=== PATIENT | female | born 1955 | race Caucasian/White ===

== ENCOUNTER 2020-10-16 09:08 | Day surgery (SDC) | payer BC, MEDICARE ==
[2020-10-16] MEDS ORDERED: Propofol 200 MG/20 ML SDV IV ONE (09:09)
[2020-10-16] MEDS ORDERED: Sodium Chloride 0.9% 10 ML Syringe FLUSH PRN (09:45)
[2020-10-16] MEDS ORDERED: Lactated Ringers 1,000 ML IV SCH (09:45)
--- NOTE | 2020-10-16 11:04 | PCM.OPNOTE ---
- General Post-Op/Procedure Note Date of Surgery/Procedure: 10/16/20 Operative Procedure(s): c scope Findings: sigmoid diverticulosis sp right liana colectomy Pre Op Diagnosis: personal hx of colon polyps. hx of diverticulosis Post-Op Diagnosis: sigmoid diverticulosis Anesthesia Technique: MAC Primary Surgeon: Joey Avila Anesthesia Provider: Jamie Milton Pathology: none Complications: None Condition: Good Free Text/Narrative:: see dictation [id number]
[2020-10-16 12:35] VITALS: BP 120/74; PULSE 56
--- NOTE | 2020-10-17 10:16 | OR ---
DATE OF OPERATION: 10/16/2020 SURGEON: Joey Avila MD PROCEDURE PERFORMED: Colonoscopy. PREOPERATIVE DIAGNOSIS: Personal history of colon polyps. POSTOPERATIVE DIAGNOSIS: Sigmoid diverticulosis. INDICATIONS FOR PROCEDURE: This is a 65-year-old white female who has had a right hemicolectomy in the past for adenomatous polyp. Her last scope 5 years ago demonstrated a small adenoma in the descending colon. She presents now for followup colonoscopy. She has a known finding of sigmoid diverticulosis as well. DESCRIPTION OF OPERATION: After an excellent IV sedation was administered, digital rectal exam was performed. No marked abnormality was noted. Flexible colonoscope was inserted and advanced to the ileocolic anastomosis. The following findings were noted. As the scope was slowly withdrawn, a photo was taken of the ileocolic anastomosis, which was unremarkable. Transverse colon, unremarkable. Descending colon, unremarkable. Sigmoid, occasional diverticula. Rectum and anus, unremarkable. The patient tolerated the procedure well, was taken to recovery room in good condition. RECOMMENDATIONS: Repeat colonoscopy in 10 years, sooner on a p.r.n. basis. /[id number] /SONAL
== END 2020-10-16 12:03 | disposition home or self-care (01) ==
LOC: FB.SDS 09:08
PROVIDERS: ATTEND Surgery
DX: K57.30 Diverticulosis of large intestine without perforation or abscess without bleeding (principal); I10 Essential (primary) hypertension; Z88.8 Allergy status to other drugs, medicaments and biological substances; Z86.010 Personal history of colon polyps; Z98.890 Other specified postprocedural states
CPT/HCPCS: 00812-QZ; J2704; J7120